=== PATIENT | male | born 1965 | race African-American/Black ===

== ENCOUNTER 2016-12-04 09:33 | Day surgery (SDC) | payer OTHER ==
[~2016-12-04] VITALS: Ht 177.8 cm; Wt 79.8 kg
[~2016-12-04 09:33] MED LIST: ALLOPURINOL100 MG PO; ASPIR 8181 M1 PO; DIOVAN HCT 11 TABLET PO; EXFORGE HCT 101 EACH PO; SIMVASTATIN40 MG PO; ZOCOR20 MG PO
[2016-12-04 09:54] VITALS: BP 181/84
[2016-12-04] MEDS ORDERED: PERCOCET 5/31 TABLET PO (13:24)
[2016-12-04 14:10] VITALS: BP 140/85
[2016-12-04 14:50] VITALS: BP 149/70
== END 2016-12-04 14:50 | disposition home or self-care (01) ==
LOC: SDC 09:33
DX: D17.1 Benign lipomatous neoplasm of skin and subcutaneous tissue of trunk (principal); E78.00 Pure hypercholesterolemia, unspecified; I10 Essential (primary) hypertension; Z79.82 Long term (current) use of aspirin
CPT/HCPCS: 88304; J0131; J0330; J0690; J1100; J1170; J2250; J2405; S0020